=== PATIENT | female | born 1995 | race Caucasian/White ===

== ENCOUNTER 2024-12-21 14:05 | Emergency (ER) | payer OTHER ==
[~2024-12-21] VITALS: Ht 172.7 cm; Wt 74.8 kg
[2024-12-21] MEDS ORDERED: AMOX500 PO (15:24)
== END 2024-12-21 15:30 | disposition home or self-care (01) ==
LOC: ER 14:05
DX: J02.0 Streptococcal pharyngitis (principal)
CPT/HCPCS: 87430; 99282